=== PATIENT | male | born 2000 | race Caucasian/White ===

== ENCOUNTER 2020-01-19 21:14 | Emergency (ER) | payer MEDICAID ==
[~2020-01-19] VITALS: Ht 180.3 cm; Wt 61.2 kg
[2020-01-19 21:28] VITALS: BP_SYST 158
--- NOTE | 2020-01-19 21:32 | NUR ---
Patient triaged and placed in waiting room. VSS and patient appears in no acute distress at this time. Accompanied by self, awaiting available bed, and MD notified of need for MSE.
--- NOTE | 2020-01-19 23:08 | NUR ---
Pt ambulatory to bed 3 for evaluation
--- NOTE | 2020-01-19 23:08 | NUR ---
Pt c/o pain and swelling to Left testicle x 1 week, worse today. Pt rates pain at 3/10, but states level of "discomfort" at 9/10. Pt denies dysuria or penile discharge.
[2020-01-19] MEDS ORDERED: cefTRIAXone 250 MG VIAL IM ONE (23:30)
--- NOTE | 2020-01-19 23:31 | NUR ---
Dr. White at bedside.
[2020-01-19] MEDS ORDERED: KETOROLAC TROMETHAMINE 60 MG/2 ML VIAL IM ONE (23:45)
[2020-01-19] MEDS ORDERED: LIDOCAINE 1%, 20 ML MDV 20 ML ONE (23:54)
[2020-01-19] MEDS ORDERED: KETOROLAC TROMETHAMINE 30 MG VIAL ONE (23:54)
[2020-01-20 00:03] VITALS: BP_SYST 112
--- NOTE | 2020-01-20 00:03 | NUR ---
Patient given written and verbal discharge instructions and verbalizes understanding. ER MD discussed with patient the results and treatment provided. Patient in stable condition. ID arm band removed. Rx of Tylenol and Doxycycline given. Patient educated on pain management and to follow up with PMD. Pain Scale 2/10. Opportunity for questions provided and answered. Medication side effect fact sheet provided.
[2020-01-20 00:36] LABS: BILIRUBIN,URINE NEGATIVE (NEGATIVE); BLOOD, URINE NEGATIVE (NEGATIVE); CLARITY/URINE CLEAR (CLEAR); COLOR,URINE YELLOW (YELLOW); GLUCOSE,URINE NEGATIVE (NEGATIVE); KETONES,URINE NEGATIVE (NEGATIVE); LEUKOCYTE ESTERASE ,URINE NEGATIVE (NEGATIVE); NITRITE, URINE NEGATIVE (NEGATIVE); PROTEIN URINE NEGATIVE (NEGATIVE)
[2020-01-22 00:06] LABS: CHLAMYDIA TRACHOMATIS NAA Negative (Negative); NEISSERIA GONORRHOEAE NAA Negative (Negative)
== END 2020-01-20 00:03 | disposition home or self-care (01) ==
LOC: SED 21:14
DX: N45.1 Epididymitis (principal); N50.812 Left testicular pain
CPT/HCPCS: 76870; 81003; 87491; 87591; 96372; 99284; J0696; J1885; J2001